=== PATIENT | male | born 1970 | race Caucasian/White ===

== ENCOUNTER 2019-01-15 05:03 | Emergency (ER) | payer OTHER ==
[2019-01-15] MEDS ORDERED: Morphine 4 MG/ML VIAL ONE (05:34)
[2019-01-15] MEDS ORDERED: Ondansetron PF 4 MG/2 ML Vial ONE (05:34)
[2019-01-15] MEDS ORDERED: Metoclopramide HCl 10 MG/2 ML VIAL ONE (05:34)
[2019-01-15 06:14] LABS: #Basophils 0.1 thou/uL (0.0-0.2); #Eosinphils 0.1 thou/uL (0.0-0.7); #Lymphocytes 2.4 thou/uL (1.20-3.40); #Monocytes 0.5 thou/uL (0.11-0.59); %Basophils 0.8 % (0.0-1.0); %Eosinophils 1.2 % (0.0-10.0); %Lymphocytes 23.6 % (21.0-51.0); %Monocytes 5.1 % (0.0-10.0); %Neutrophils 69.4 % (42.0-75.0); Mean Corpuscular HGB CONC 34.5 g/dL (32.0-36.0); Mean Corpuscular Hemoglobin 29.4 pg (27.0-31.0); Mean Corpuscular Volume 85.4 fL (78.0-98.0); Platelet Count 237 thou/uL (130-400); RBC Distribution Width 11.7 % (11.5-14.5); Red Blood Cell (RBC) Count 5.76 mill/uL (4.70-6.10); White Blood Cell (WBC) Count 10.1 thou/uL (4.8-10.8)
[2019-01-15 06:25] LABS: ALT (SGPT) 52 U/L (8-55); AST (SGOT) 27 U/L (5-34); Albumin 4.1 g/dL (3.5-5.0); Alkaline Phosphatase 106 U/L (40-150); Anion Gap 15 mmol/L (10-20); BUN (Urea Nitrogen) 13 mg/dL (8.9-20.6); Bilirubin, Total 0.7 mg/dL (0.2-1.2); Calc. Creatinine Clearance 0 mL/min (70-130); Calcium 10.3 mg/dL (7.8-10.44); Carbon Dioxide 24 mmol/L (22-29); Chloride 102 mmol/L (98-107); Estimated GFR-MDRD 77; Globulin 3.5 g/dL (2.4-3.5); Glucose 100 mg/dL (70-105); Lipase 20 U/L (8-78); Potassium 4.8 mmol/L (3.5-5.1); Protein, Total 7.6 g/dL (6.0-8.3); Sodium 136 mmol/L (136-145)
[2019-01-15 07:04] LABS: Bilirubin Negative (Negative); Blood, Urine Negative (Negative); Clarity Clear (Clear); Glucose, Urine (Dipstick) Negative (Negative); Leukocyte Negative (Negative); Nitrite Negative (Negative); Protein, Urine (Dipstick) Negative (Neg-Trace); Specific Gravity, Urine 1.004 (1.002-1.036); Urobilinogen 0.2 mg/dL (0.2-1.0)
--- NOTE | 2019-01-15 07:29 | CT ---
ABDOMEN AND PELVIS CT WITH CONTRAST: INDICATION: Emergency exam, pain. FINDINGS: There is abnormal wall thickening and inflammation of the left hemicolon. There are a few scattered colonic diverticula which are predominantly separate from the region of inflamed colon. There is col onic distention of the more proximal, right hemicolon and transverse colon measuring between 5.5 and 6 cm in diameter. No acute abnormality of the solid abdominal organs. The abdominal aorta is normal in caliber. There is no free air. No ascites. Visualized lung bases are free from consolidation. There is mild patchy subpleural opacification of the visualized lung bases. Punctate left hepatic l obe hypodensity is stable. IMPRESSION: 1. Evidence of left hemicolitis. There is associated focal ectasia with localized retained fecal ma terial and resultant distention centered at the junction of the descending colon and sigmoid colon. Constellation of findings may relate to an infectious/inflammation versus ischemic process. Recommen d clinical correlation in this regard. Upon resolution of acute symptoms, colonoscopy is recommended in order to exclude an underlying mass, particularly given the localized area of colonic wall promin ence and dilatation with retained fecal material at the junction of the descending and sigmoid coloni c segments. There are a few interspersed colonic diverticula, although the nidus of inflammation santoro s not appear to arise from diverticular disease. 2. Proximal colonic distention, related to the inflammation in the left hemicolon. POS: [facility]
== END 2019-01-15 07:24 | disposition home or self-care (01) ==
LOC: SCSER 05:03
DX: K52.9 Noninfective gastroenteritis and colitis, unspecified (principal); I10 Essential (primary) hypertension; F17.220 Nicotine dependence, chewing tobacco, uncomplicated; Z79.899 Other long term (current) drug therapy; Z79.891 Long term (current) use of opiate analgesic
CPT/HCPCS: 74177; 80053; 81003; 83690; 85025; 93005; 96365; 96375; J2270; J2405; J2765

== ENCOUNTER 2019-03-24 15:08 | Outpatient (CLI) | payer OTHER ==
[~2019-03-24 15:08] MED LIST: Gadobenate Dimeglumine 529 MG/1 ML (20ML VIAL) ONE
--- NOTE | 2019-03-24 17:30 | MRI ---
MRI BRAIN WITH AND WITHOUT CONTRAST: Date: 03/24/19 INDICATION: [place]. FINDINGS: Ventricles have normal size and position. No evidence of restricted diffusion. No mass or edema seen on FLAIR sequence. There is abnormal white matter signal seen in the sub cortical and deep white matter, centrum semiova le bilaterally. There is some periventricular white matter foci. No abnormal enhancement identified. Intracranial internal carotid arteries and cerebral arteries show expected flow-voids. Paranasal sinu ses are clear. IMPRESSION: Abnormal white matter signal seen in the subcortical white matter of both frontal lobes and periventr icular white matter and centrum semiovale of both cerebral hemispheres. Findings are nonspecific, but are abnormal for patient's age. Considerations include demyelinating process, chronic ischemic micro vascular change, and autoimmune processes. Recommend clinical correlation. POS: [facility]
== END 2019-03-24 15:09 | disposition home or self-care (01) ==
LOC: SCSMRI 15:08
PROVIDERS: ATTEND Psychiatry & Neurology Neurology
DX: M21.379 Foot drop, unspecified foot (principal); R90.82 White matter disease, unspecified
CPT/HCPCS: 70553; A9577

== ENCOUNTER 2021-05-21 13:47 | Outpatient (CLI) | payer OTHER ==
[2021-05-21 15:00] LABS: Hemoglobin 16.1 g/dL (13.5-17.5); Mean Corpuscular Volume 85.2 fl (81.2-95.1); Mean Platelet Volume 9.7 fl (7.4-10.4); Platelet Count 272 10x3/uL (150-450); RBC Distribution Width 13.2 % (11.5-14.5); Red Blood Cell (RBC) Count 5.55 10x6/uL (4.32-5.72); White Blood Cell (WBC) Count 6.4 10x3/uL (3.5-10.5)
[2021-05-21 16:26] LABS: Bilirubin Neg (Negative); Blood, Urine Negative (Negative); Clarity Clear (Clear); Glucose, Urine (Dipstick) Normal (Negative); Ketone, Urine Negative (Negative); Leukocyte Negative (Negative); Nitrite Negative (Negative); Protein, Urine (Dipstick) Negative (Neg-Trace); Specific Gravity, Urine 1.015 (1.002-1.036); Urobilinogen Normal mg/dL (Less than 2)
[2021-05-21 19:10] LABS: Bacteria/HPF Rare-Few HPF (None Seen); RBC/HPF None Seen HPF (0-3); Squamous Epithelial 0-3 HPF (0-3); WBC/HPF 0-3 HPF (0-3)
[2021-05-21 19:11] LABS: Mucous/LPF Rare LPF (<2+)
[2021-05-21 22:31] LABS: Prothrombin Time 10.8 sec (9.5-12.1)
[2021-05-22 11:17] LABS: SARS-CoV-2 PCR by NAA Not Detected (NotDetected)
== END 2021-05-21 13:48 | disposition home or self-care (01) ==
LOC: LABBT 13:47
PROVIDERS: ATTEND Urology
DX: Z01.818 Encounter for other preprocedural examination (principal); N40.1 Benign prostatic hyperplasia with lower urinary tract symptoms; N48.6 Induration penis plastica; N39.41 Urge incontinence; M47.12 Other spondylosis with myelopathy, cervical region; M54.17 Radiculopathy, lumbosacral region; K59.00 Constipation, unspecified; N50.0 Atrophy of testis; R35.0 Frequency of micturition; R39.11 Hesitancy of micturition; Z20.822 Contact with and (suspected) exposure to COVID-19
CPT/HCPCS: 71046; 81001; 85027; 85610; 87086; 93005; 93010; U0003; U0005

== ENCOUNTER 2021-05-23 06:17 | Day surgery (SDC) | payer OTHER ==
[2021-05-22 12:07] VITALS: BMI 33.2
[2021-05-23] MEDS ORDERED: Bupivacaine 0.25% HCL 30 ML VIAL ONE (06:44)
[2021-05-23] MEDS ORDERED: Neomycin-Polymyxin 1 ML AMP ONE (06:44)
[2021-05-23] MEDS ORDERED: Fentanyl 100 MCG/2 ML VIAL ONE (06:46)
[2021-05-23 07:12] LABS: Anion Gap 12 mmol/L (10-20); BUN (Urea Nitrogen) 7 mg/dL (8.9-20.6); Calc. Creatinine Clearance 121 mL/min (70-130); Calcium 8.9 mg/dL (7.8-10.44); Carbon Dioxide 26 mmol/L (22-29); Chloride 106 mmol/L (98-107); Glucose 101 mg/dL (70-105); Potassium 4.2 mmol/L (3.5-5.1); Sodium 140 mmol/L (136-145)
[2021-05-23] MEDS ORDERED: Lidocaine 1% PF 5 ML VIAL ONE (07:40)
[2021-05-23] MEDS ORDERED: ePHEDrine 50 MG/ML VIAL ONE (07:40)
[2021-05-23] MEDS ORDERED: PROPOFOL 200 MG/20 ML VIAL ONE (07:40)
[2021-05-23] MEDS ORDERED: Ondansetron PF 4 MG/2 ML Vial ONE (07:40)
[2021-05-23] MEDS ORDERED: Dexamethasone 20 MG/5 ML VIAL ONE (07:40)
[2021-05-23] MEDS ORDERED: PHENYLEPHRINE-NS 100 MCG/ML 10 ML SYRINGE ONE (07:40)
[2021-05-23] MEDS ORDERED: Sodium Chloride 0.9% 10 ML ONE ×2 (07:42→08:15)
== END 2021-05-23 12:25 | disposition home or self-care (01) ==
LOC: SDC 06:17
PROVIDERS: ATTEND Urology
PROC: 0VBSXZZ Excision of Penis, External Approach (ICD-10-PCS; principal; 2021-05-23)
DX: N48.6 Induration penis plastica (principal); N39.41 Urge incontinence; G89.29 Other chronic pain; M54.5 Low back pain; M54.16 Radiculopathy, lumbar region; N52.9 Male erectile dysfunction, unspecified; K21.9 Gastro-esophageal reflux disease without esophagitis; I10 Essential (primary) hypertension; M47.12 Other spondylosis with myelopathy, cervical region; M54.17 Radiculopathy, lumbosacral region; K59.00 Constipation, unspecified; N50.0 Atrophy of testis; N40.1 Benign prostatic hyperplasia with lower urinary tract symptoms; R35.0 Frequency of micturition; Z87.891 Personal history of nicotine dependence; Z79.82 Long term (current) use of aspirin; Z79.899 Other long term (current) drug therapy; Z88.0 Allergy status to penicillin; Z88.8 Allergy status to other drugs, medicaments and biological substances; Z98.1 Arthrodesis status; Z99.3 Dependence on wheelchair
CPT/HCPCS: 80048; J0690; J1100; J2405; J2704; J3010; J3490; S0020

== ENCOUNTER 2021-09-05 08:49 | Outpatient (CLI) | payer OTHER ==
[2021-09-05 17:33] LABS: SARS-CoV-2 PCR by NAA Not Detected (NotDetected)
== END 2021-09-05 08:50 | disposition home or self-care (01) ==
LOC: LABBT 08:49
PROVIDERS: ATTEND Specialist
DX: Z01.812 Encounter for preprocedural laboratory examination (principal); Z20.822 Contact with and (suspected) exposure to COVID-19
CPT/HCPCS: U0003; U0005

== ENCOUNTER 2021-09-10 10:45 | Day surgery (SDC) | payer OTHER ==
[2021-09-04 11:44] VITALS: BMI 31.3
[2021-09-10] MEDS ORDERED: CEFAZOLIN 1 GM VIAL ONE (11:10)
[2021-09-10] MEDS ORDERED: Sodium Chloride 0.9% 0 ML ONE (11:10)
[2021-09-10] MEDS ORDERED: Levofloxacin 500 mg/D5W 100 ml Premix Bag ONE (11:23)
[2021-09-10] MEDS ORDERED: EPINEPHrine 1 MG/ML AMP ONE (13:34)
[2021-09-10] MEDS ORDERED: Bupivacaine PF 0.5% 30 ML VIAL ONE (13:34)
[2021-09-10] MEDS ORDERED: Fentanyl 100 MCG/2 ML VIAL ONE (13:36)
[2021-09-10] MEDS ORDERED: Propofol 1,000 MG/100 ML VIAL IV ONE (13:36)
[2021-09-10] MEDS ORDERED: HYDROcodone/Acetaminophen 5/325 mg Tablet ONE (16:39)
== END 2021-09-10 17:07 | disposition home or self-care (01) ==
LOC: SDC 10:45
PROVIDERS: ATTEND Specialist
PROC: 00HU3MZ Insertion of Neurostimulator Lead into Spinal Canal, Percutaneous Approach (ICD-10-PCS; principal; 2021-09-10)
PROC: 0JH70DZ Insertion of Multiple Array Stimulator Generator into Back Subcutaneous Tissue and Fascia, Open Approach (ICD-10-PCS; principal; 2021-09-10)
DX: M96.1 Postlaminectomy syndrome, not elsewhere classified (principal); G89.4 Chronic pain syndrome; M47.22 Other spondylosis with radiculopathy, cervical region; Z79.82 Long term (current) use of aspirin; Z79.899 Other long term (current) drug therapy; Z88.0 Allergy status to penicillin; Z88.2 Allergy status to sulfonamides; Z88.8 Allergy status to other drugs, medicaments and biological substances; Z98.1 Arthrodesis status
CPT/HCPCS: 72070; 76000; C1713; C1778; C1787; C1820; J0171; J0690; J1956; J2704; J3010; J3490; L8689; S0020